=== PATIENT | male | born 1970 | race Caucasian/White ===

== ENCOUNTER 2017-01-08 09:20 | Emergency (ER) | payer SELFPAY ==
[~2017-01-08] VITALS: Ht 188 cm; Wt 72.7 kg
[2017-01-08 09:23] VITALS: BP 135/82; PULSE 100; RESP 16; O2SAT 95
--- NOTE | 2017-01-08 09:53 | ED.REPORT ---
HPI-Abd Pain M 40 and Over Date of Service Jan 08, 2017 ED Provider: Vinayak Gomes MD The pt is a 46 y/o male w/ a hx of of a splenectomy presenting to the ED complaining of abdominal pain onset 3 days ago. The pt reports that he felt the pain intermittently beginning three days ago, but it becoming much worse as of yesterday. He describes the pain as being localized to his LUQ, becoming worse w / breathing, and never experiencing anything like this in the past. He also reports experiencing nausea, as well as flashes of diaphoresis that come with the abdominal pain. Denies diarrhea, constipation, vomiting, or fever. Nursing Notes Stated Complaint: ABDOMINAL PAIN Chief Complaint: Male Abdominal Pain Nursing Notes Reviewed: Yes Allergies: Coded Allergies: hydrocodone (Verified Allergy, Severe, ITCH, RASH, 01/08/17) codeine (Verified Allergy, Intermediate, itchy rash, 01/08/17) General Time Seen by MD: 09:52 Chief Complaint Abdominal pain Hx Obtained From: Patient Arrived By: Walk-in Sudden in Onset?: Yes Onset Occurred: 3 days ago Symptom Duration: Since onset Recent Healthcare: No recent hospitalization, Recent doctor visit Similar Sx Previous: No Past Medical History Past Medical History None reported Past Surgical History Trauma related splenectomy Smoking History Former Smoker Social History Pt uses marijuana daily and chews tobacco Has not used any illicit drugs for the last 7 years Alcohol Use: "Social" Ambulatory Status Independent Review of Systems Constitutional: Denies: Fever GI: Reports: Abdominal pain (LUQ ), Nausea, Denies: Constipation, Diarrhea, Vomiting Complete sys rev & neg: except as marked. Skin: Reports Diaphoresis (comes in flashes ) Physical Exam Initial Vital Signs Vital Signs (First) Date Time Temp Pulse Resp B/P Pulse Ox O2 Delivery O2 Flow Rate FiO2 01/08/17 09:23 37.0 100 16 135/82 95 Room Air Initial VS: Reviewed Head / Eyes: Atraumatic, Normocephalic, PERRL ENT: Mucous membranes moist, Conjunctiva normal, No scleral icterus Neck: Supple, Non-tender, Full range of motion Extremities: Vascular intact, Neuro intact, No swelling, No tenderness Skin: Warm, Dry, No cyanosis Neurologic: Alert, Oriented, Nonfocal Psychiatric: Mood/affect normal, Behavior normal, Normal thought content General/Constitutional: Awake, Alert Respiratory / Chest: Atraumatic, Breath sounds NL, Breath sounds = bilat Cardiovascular: Heart rate NL, Regular rhythm, Heart sounds NL Abdomen: Soft Tenderness/Guarding/Rebound: Positive: Tender LUQ... (w/ guarding ) Back: Atraumatic, Inspection NL, Full range of motion Interpretation & Diagnostics PROCEDURE: CT CHEST, ABDOMEN AND PELVIS WITH CONTRAST ([id number]) IMPRESSION: 1. Moderate dependent left pleural effusion is of uncertain etiology, causing left lower lobe compressive atelectasis. 2. Solitary indeterminate 6 mm right lower lobe nodule. If no remote outside institution chest CTs are available, recommend 6-12 months followup noncontrast chest CT, following the revised Fleischner society criteria outlined below. 3. Bilateral upper lung paraseptal emphysema, with variably sized peripheral lung bullae. 4. Status post interval splenectomy. No acute abnormalities within the abdomen or pelvis. Left pleural effusion findings were discussed with Dr. Gomes at 1220 hrs on January 08, 2017. Fleischner Society criteria for SOLID lung nodule followup. Nodule size (mm)Low-risk patientHigh-risk patient<6 (single or multiple)No routine followup.Optional CT at 12 months. 6-8 (single or multiple)CT at 6-12 months, then optional CT at 18-24 mo.CT at 6-12 months, then CT at 18-24 months. >8 (single)CT, PET-CT, or biopsy at 3 months. Same as for low-risk pts. >8 (multiple)CT at 3-6 months, then optional CT at 18-24 mo.CT at 3-6 months, then CT at 18-24 months. Dictated by: Dean Hall M.D. on 01/08/2017 at 12:14 Approved by: Dean Hall M.D. on 01/08/2017 at 12:30 Lab Results Interpretation Result Diagram: 01/08/17 0930 01/08/17 0930 Test 01/08/17 09:30 White Blood Count 25.7th/mm3 (3.8-10.1) Red Blood Count 4.73mil/mm3 (4.40-5.80) Hemoglobin 14.8g/dL (13.8-17.2) Hematocrit 43.2% (41.0-50.0) Mean Corpuscular Volume 91.3fL (81-100) Mean Corpuscular Hemoglobin 31.3pg (27.0-35.0) Mean Corpuscular Hemoglobin Concent 34.3% (32.0-37.0) Red Cell Distribution Width 13.6% (12.3-15.4) Platelet Count 277bil/L (150-400) Neutrophils (%) (Auto) 79.7% (40-74) Lymphocytes (%) (Auto) 8.2% (14-46) Monocytes (%) (Auto) 11.1% (4-12) Eosinophils (%) (Auto) 0.5% (0-5) Basophils (%) (Auto) 0.1% (0-3) Sodium Level 135mEq/L (134-144) Potassium Level 4.3mEq/L (3.5-5.2) Chloride Level 97mEq/L (97-108) Carbon Dioxide Level 23mmol/L (18-29) Blood Urea Nitrogen 18mg/dL (6-24) Creatinine 0.68mg/dL (0.76-1.27) Estimat Glomerular Filtration Rate 133mL/min (>59) Glucose Level 121mg/dL (60-99) Lactic Acid Level 2.6mmol/L (0.4-2.0) Calcium Level 9.5mg/dL (8.5-10.1) Magnesium Level 1.9mg/dL (1.6-2.6) Total Bilirubin 1.5mg/dL (0.0-1.2) Aspartate Amino Transf (AST/SGOT) 24U/L (0-50) Alanine Aminotransferase (ALT/SGPT) 36U/L (0-44) Alkaline Phosphatase 78U/L (25-150) Total Protein 8.1g/dL (6.4-8.4) Albumin 4.0g/dL (3.4-5.0) Lipase 11U/L (13-60) Hold Feng Top Tube Received (Received) X-Ray Chest Interpretation Chest Xray Interpretation: IMPRESSION: Basal left pleural effusion has decreased status post thoracentesis. No pneumothorax. Dictated by: Dean Hall M.D. on 01/08/2017 at 13:13 Approved by: Dean Hall M.D. on 01/08/2017 at 13:15 View: Portable, 1 view Interpretation / Wet Read by: Interpret - Radiologist X-Ray Abdominal Interpretation IMPRESSION: 1. No imaging explanation for abdominal pain. 2. Small to moderate left dependent pleural effusion is of uncertain etiology, with presumed retrocardiac compressive atelectasis. Dictated by: Dean Hall M.D. on 01/08/2017 at 10:32 Approved by: Dean Hall M.D. on 01/08/2017 at 10:34 Study: 2 view Interpretation / Wet Read by: Interpret - Radiologist Procedures Thoracentesis Procedure Location: L lower lung Time: 1237 Aspiration performed by: ED physician Consent/Setup/Sit Prep: Informed consent provided, consent from pt, time-out performed, hand hygiene observed, stand sterile technique, patient sitting up, sterile drapes applied, Indication: CT showed fluid in L lower lung field Skin preparation agent: Chlorhexidine Local Anesthesia: Lidocaine 1% Aspiration needle: 22g Guidance: Ultrasound guidance Amount aspirated: Approximately 725 cc Fluid Appearance: Yellow but does not appear overtly infected Post-Procedure/ Complications: Dressing placed, No complications, Condition improved, tolerated procedure well, patient stable, Re-Eval/Medical Decision Source of Hx: Old records Time of Eval: 11:13 Re-Evaluation/Progress Note: Rechecked pt and discussed plan for CT. Time of Eval: 12:19 Re-Evaluation/Progress Note: Discussed CT results. Informed the pt of the fluid in his lungs and plan to perform a thoracentesis. Discussed the risks and possible complications of the procedure. The pt states that his pain has slightly improved and agrees to have the procedure performed. Time of Eval: 12:37 Re-Evaluation/Progress Note: Performed thoracentesis procedure Time of Eval: 13:17 Re-Evaluation/Progress Note: Rechecked pt who is feeling much better. Discussed plan for further testing to determine the cause of the fluid buildup. Counseled Regarding: Diagnosis, Lab results, Need for follow-up, When/why to return to ED Discharge & Departure Primary Impression: Pleural effusion Disposition: Home Vital Signs - All Vital Signs Date Time Temp Pulse Resp B/P Pulse Ox O2 Delivery O2 Flow Rate FiO2 01/08/17 13:02 69 22 138/63 95 Room Air 01/08/17 12:28 70 15 115/60 95 Room Air 01/08/17 09:23 37.0 100 16 135/82 95 Room Air )( All Prior VS Reviewed: Yes Condition: Stable Patient Instructions: Pleural Effusion (ED) Additional Instructions: You have a pleural effusion. The most likely cause for this is an infection like pneumonia. Take both prescribed antibiotics (Augmentin and Zithromax) as directed on the bottle until they are completed. Return to the emergency department for sudden shortness of breath or if you are feeling much worse. Otherwise, call tomorrow morning for an appointment with Dr. Huff or one of her partners in the coming days. Many tests have been ordered on the fluid that was collected from the chest cavity and follow-up needs to occur to make sure that there was no other concerning diagnosis. Tylenol or ibuprofen as needed for pain, oxycodone as needed for severe pain. Referrals: Luna Huff MD Scribe Attestation Portions of this note were transcribed by Rafi Newell. I, Dr. Gomes personally performed the history, physical exam and medical decision-making; I reviewed and confirmed the accuracy of the information in the transcribed note. copies to: Luna Huff MD, Kirk H MD Jan 08, 2017 09:53 Rafi Newell Jan 08, 2017 10:57
[2017-01-08] MEDS ORDERED: 0.9% Sodium Chloride 1,000 ML IV ONE (09:55)
[2017-01-08 10:00] LABS: BASOPHILS % (AUTO) 0.1 % (0-3); EOSINOPHILS % (AUTO) 0.5 % (0-5); MONOCYTES % (AUTO) 11.1 % (4-12); Mean Corpuscular Hemoglobin 31.3 pg (27.0-35.0); Mean Corpuscular Volume 91.3 fL (81-100); NEUTROPHILS % (AUTO) 79.7 % (40-74); Platelet Count 277 bil/L (150-400)
[2017-01-08] MEDS ORDERED: Ondansetron 2 mg/mL 2 mL Inj IVPUSH PRN (10:05)
[2017-01-08] MEDS ORDERED: MetoCLOpramide 5 mg/mL 2 mL Inj IVPUSH ONE (10:05)
[2017-01-08 10:26] LABS: Magnesium 1.9 mg/dL (1.6-2.6)
--- NOTE | 2017-01-08 10:36 | DRSVH ---
PROCEDURE: X-RAY ACUTE ABDOMINAL SERIES ([id number]) INDICATIONS: 46-year-old male with abdominal pain. TECHNIQUE: One view chest and two views of the abdomen were acquired. COMPARISON: [facility], , CHEST 2VW, 02/24/2009, 10:52. [facility], , CH EST 1VW (PORTABLE), 02/19/2009, 10:12. [facility], , CHEST 1VW (PORTABLE), 02/19/2009, 6 :20. FINDINGS: Surgical changes and devices: Left upper quadrant surgical clips are again noted. Chest: Small to moderate dependent left pleural effusion is now present, with retrocardiac air space opacity as well. No pneumothorax. Heart size is normal. No pleural effusions. No pneumoperitoneum. Abdomen: Bowel gas pattern is normal. No suspicious calcifications. Visualized solid organ contour s appear normal. Bones: No suspicious bony lesions. IMPRESSION: 1. No imaging explanation for abdominal pain. 2. Small to moderate left dependent pleural effusion is of uncertain etiology, with presumed retrocar diac compressive atelectasis. Dictated by: Dean Hall M.D. on 01/08/2017 at 10:32 Approved by: Dean Hall M.D. on 01/08/2017 at 10:34
[2017-01-08] MEDS ORDERED: HYDROmorphone 1 mg/mL Inj IVPUSH ONE ×2 (11:30→13:05)
[2017-01-08 12:28] VITALS: BP 115/60; PULSE 70; RESP 15; O2SAT 95
--- NOTE | 2017-01-08 12:32 | DRSVH ---
PROCEDURE: CT CHEST, ABDOMEN AND PELVIS WITH CONTRAST ([id number]) INDICATIONS: 46 year-old male with left upper quadrant pain for 3 days, with leukocytosis.. TECHNIQUE: After the administration of intravenous contrast, 5 mm thick sections acquired from the lung apices t o the symphysis. 5 mm coronal and sagittal reformats were performed, with additional 7 mm MIP reform ats through the lungs. For radiation dose reduction, the following was used: automated exposure con trol, adjustment of mA and/or kV according to patient size. COMPARISON: [facility], CT, ABD/PELVIS W/CON TRAUMA (PN), 02/19/2009, 5:13. FINDINGS: Image quality: Excellent. CHEST: Lungs and pleura: There is moderate dependent left pleural effusion, with nodular extension into the superior portions of the left major fissure on axial image 27. No visible rim enhancement. There is c ompressive atelectasis of the left lower lobe. Right lung appears clear. There is upper lung parasept al emphysema, with scattered variably sized bullae present. 6 mm right lower lobe nodule is present o n axial image 35. Mediastinum: Heart size is normal. No pericardial effusion. No mediastinal or hilar adenopathy by size criteria. Thoracic aorta and central pulmonary arteries are normal in size. Esophagus is doretha l in caliber. No hiatal hernia. Chest wall: No axillary or supraclavicular adenopathy by size criteria. Thyroid gland is normal in size. ABDOMEN: Solid organs: Liver is normal in size and enhancement. Gallbladder wall thickness is normal. Bilia ry system is non dilated. Pancreas enhances normally. Spleen is now surgically absent. No adrenal n odules. Kidneys demonstrate normal size and enhancement, without hydronephrosis. Peritoneum and bowel: Bowel loops demonstrate normal wall thickness and caliber. No free fluid or a ir. Nodes and vessels: No retroperitoneal or mesenteric adenopathy by size criteria. Aorta and inferior vena cava are normal in size, with minimal right iliac atherosclerosis. Miscellaneous: No ventral hernias. PELVIS: Genitourinary: Bladder wall thickness is normal. Prostate gland is normal in size. Miscellaneous: No inguinal hernias or adenopathy. Bones: No suspicious bony lesions. No vertebral body compression fractures. IMPRESSION: 1. Moderate dependent left pleural effusion is of uncertain etiology, causing left lower lobe clark sive atelectasis. 2. Solitary indeterminate 6 mm right lower lobe nodule. If no remote outside institution chest CTs ar e available, recommend 6-12 months followup noncontrast chest CT, following the revised Fleischner so ety criteria outlined below. 3. Bilateral upper lung paraseptal emphysema, with variably sized peripheral lung bullae. 4. Status post interval splenectomy. No acute abnormalities within the abdomen or pelvis. Left pleural effusion findings were discussed with Dr. Gomes at 1220 hrs on January 08, 2017. Fleischner Society criteria for SOLID lung nodule followup. Nodule size (mm)Low-risk patientHigh-risk patient<6 (single or multiple)No routine followup.Optional CT at 12 months. 6-8 (single or multiple)CT at 6-12 months, then optional CT at 18-24 mo.CT at 6-12 m onths, then CT at 18-24 months. >8 (single)CT, PET-CT, or biopsy at 3 months. Same as for low-risk p ts. >8 (multiple)CT at 3-6 months, then optional CT at 18-24 mo.CT at 3-6 months, then CT at 18-24 m onths. Dictated by: Dean Hall M.D. on 01/08/2017 at 12:14 Approved by: Dean Hall M.D. on 01/08/2017 at 12:30
[2017-01-08 13:02] VITALS: BP 138/63; PULSE 69; RESP 22; O2SAT 95
--- NOTE | 2017-01-08 13:16 | DRSVH ---
PROCEDURE: X-RAY CHEST ONE VIEW, PORTABLE ([id number]) INDICATIONS: 46-year-old male status post thoracentesis. TECHNIQUE: One view of the chest was acquired. COMPARISON: [facility], CR, XR ABD ACUTE SERIES 3VW, 01/08/2017, 10:23. [facility], CR, CHEST 2VW, 02/24/2009, 10:52. [facility], CR, CHEST 1VW (PORTABLE), 02/19/2009 , 10:12. FINDINGS: Surgical changes and devices: Left upper quadrant surgical clips are again noted. Lungs and pleura: Residual basal left pleural effusion has decreased status post thoracentesis. No pn eumothorax. There is decreased retrocardiac compressive atelectasis. Mediastinum: Mediastinal contours appear normal. Heart size is normal. Bones and chest wall: No suspicious bony lesions. Overlying soft tissues appear unremarkable. IMPRESSION: Basal left pleural effusion has decreased status post thoracentesis. No pneumothorax. Dictated by: Dean Hall M.D. on 01/08/2017 at 13:13 Approved by: Dean Hall M.D. on 01/08/2017 at 13:15
[2017-01-08] MEDS ORDERED: Amoxicillin-Clav 875-125 mg Tablet PO ONE (13:55)
[2017-01-08] MEDS ORDERED: AMOX-366 PO (14:11)
[2017-01-08] MEDS ORDERED: AZIT250T4 PO (14:11)
[2017-01-08 14:51] VITALS: BP 128/72; PULSE 76
[2017-01-08 15:11] LABS: BFWBC 10350 /mm3
[2017-01-08 15:17] LABS: MONOCYTES,BODY FLUID 13 %; OTHER CELLS,BODY FLUID 0
--- NOTE | 2017-01-11 15:04 | PATH ---
SURGICAL PATHOLOGY Attending Physician:Johnny Stark CASE STATUS: Signed Out PATIENT NAME: ALEXIS CONTEH PID: [id number] : 1970 DATE COLLECTED:01/08/2017 00:00 SPECIMEN: Pleural Fluid CLINICAL HISTORY: Pleural Fluid ICD-10 code not given FINAL DIAGNOSIS: PLEURAL FLUID, CYTOLOGY: NEGATIVE FOR MALIGNANT CELLS. [id number] NOTE: One cytospin slide and one H&E cell block slide are examined which show predominately blood. No malignant cells are identified. GROSS DESCRIPTION: Received fresh on 01/10/2017 is approximately 8 cc of cloudy yellow fluid. Prepared are one cell block and one Cytospin slide. Vo ICD-9 CODES: CPT CODES: 1: 38038, 03926, 15508 Electronically Signed Out Ruby James MD [facility], [place] [address] Technical component performed at [facility], [facility] [address], [place], [address]
== END 2017-01-08 14:30 | disposition home or self-care (01) ==
LOC: SED 09:20
DX: J90 Pleural effusion, not elsewhere classified (principal); Z87.891 Personal history of nicotine dependence; Z88.5 Allergy status to narcotic agent
CPT/HCPCS: 32555; 36415; 71010; 71260; 74022; 74177; 80053; 82945; 83605; 83615; 83690; 83735; 85025; 87070; 87075; 87101; 87205; 87206; 87556; 89051; 96361; 96374; 96375; 96376; 99285; J1170; J2405; J2765; J7030; Q9967